=== PATIENT | female | born 1970 | race Caucasian/White ===

== ENCOUNTER 2019-08-06 16:54 | Outpatient (CLI) | payer OTHER, SELFPAY | END 2019-08-06 16:55 | disposition home or self-care (01) | LOC: CHSLAB 16:57 | PROVIDERS: PCP Internal Medicine; Visit Provider Specialist | DX: D22.5 Melanocytic nevi of trunk (principal) | CPT/HCPCS: 88305 ==

== ENCOUNTER 2020-04-06 12:06 | Outpatient (CLI) | payer OTHER, SELFPAY ==
--- NOTE | ~2020-04-06 | MM_ITS ---
EXAMINATION: MM screening [facility] BI w sarah HISTORY: Screening mammogram TECHNIQUE: Craniocaudal and mediolateral oblique 3-D tomosynthesis images were obtained and synthetic 2-D images were generated. CAD analysis was submitted and interpreted. COMPARISON: 04/05/2019, 04/03/2018, 03/23/2017 bilateral digital screening mammogram examinations BREAST PARENCHYMAL COMPOSITION: The breasts are heterogeneously dense, which may obscure small masses . FINDINGS: There is no evidence of suspicious mass, calcification, or architectural distortion to sugg est malignancy in either breast. There has been no suspicious interval change. IMPRESSION: 1. No mammographic evidence of malignancy. 2. Recommend routine screening mammography in one year. BI-RADS Category 1: Negative Reviewed, dictated and finalized at location A. EY KNITTER
== END 2020-04-06 12:07 | disposition home or self-care (01) ==
LOC: CHSIMG 12:07
PROVIDERS: PCP Internal Medicine; Visit Provider Obstetrics & Gynecology
DX: Z12.31 Encounter for screening mammogram for malignant neoplasm of breast (principal)
CPT/HCPCS: 77063; 77067

== ENCOUNTER 2020-12-29 12:28 | Outpatient (CLI) | payer OTHER, SELFPAY ==
--- NOTE | ~2020-12-29 | US_ITS ---
EXAMINATION: US pelvic complete w TV DATE: 12/29/2020 13:00 INDICATION: Irregular periods Comparison:No prior studies for comparison. TECHNIQUE: Multiple transabdominal and endovaginal sonographic images of the pelvis performed. FINDINGS: The uterus measures 6.7 x 3.1 x 4.1 cm. The endometrial complex measures 5 mm. The right ovary measures 2.1 x 1.3 x 2.4 cm and the left ovary measures 2.9 x 2 x 2.2 cm. There are small follicles in each ovary. There is a 2.4 cm left ovarian cyst. Normal doppler signal in both ova francheska. There is no free fluid in the pelvis. There are no abnormal masses seen on either side. IMPRESSION: 1. Left ovarian cyst measuring 2.4 cm. Reviewed, dictated and finalized at location A.
== END 2020-12-29 12:29 | disposition home or self-care (01) ==
LOC: CHSIMG 12:32
PROVIDERS: PCP Internal Medicine; Visit Provider Obstetrics & Gynecology
DX: N92.6 Irregular menstruation, unspecified (principal)
CPT/HCPCS: 76830; 76856

== ENCOUNTER 2021-04-08 07:16 | Outpatient (CLI) | payer OTHER, SELFPAY ==
--- NOTE | ~2021-04-08 | MM_ITS ---
EXAMINATION: MM screening [facility] BI w sarah HISTORY: Screening mammogram TECHNIQUE: Craniocaudal and mediolateral oblique 3-D tomosynthesis images were obtained and synthetic 2-D images were generated. CAD analysis was submitted and interpreted. COMPARISON: 04/06/2020, 04/05/2019, 04/03/2018 BREAST PARENCHYMAL COMPOSITION: The breasts are heterogeneously dense, which may obscure small masses . FINDINGS: There is no evidence of suspicious mass, calcification, or architectural distortion to sugg est malignancy in either breast. There has been no suspicious interval change. IMPRESSION: 1. No mammographic evidence of malignancy. 2. Recommend routine screening mammography in one year. BI-RADS Category 1: Negative Reviewed, dictated and finalized at location A. FILLER
== END 2021-04-08 07:17 | disposition home or self-care (01) ==
LOC: CHSIMG 07:20
PROVIDERS: PCP Internal Medicine; Visit Provider Obstetrics & Gynecology
DX: Z12.31 Encounter for screening mammogram for malignant neoplasm of breast (principal)
CPT/HCPCS: 77063; 77067

== ENCOUNTER 2022-01-26 08:44 | Outpatient (CLI) | payer BC, SELFPAY ==
[2022-01-26 08:56] LABS: Basophils Absolute Auto 0.03 K/mm3 (0.00-0.10); Basophils Percent Auto 0.7 % (0.0-1.0); Eosinophils Absolute Auto 0.09 K/mm3 (0.02-0.50); Hematocrit 41.7 % (35.0-49.0); Hemoglobin 13.9 g/dL (12.0-15.0); Immature Granulocyte Absolute 0.01 K/mm3 (0.00-0.00); Immature Granulocyte Percent A 0.2 % (0.0-0.0); Lymphocytes Absolute Auto 1.68 K/mm3 (1.10-4.50); Lymphocytes Percent Auto 37.7 % (18.0-42.0); Mean Corpuscular HGB Conc 33.3 g/dL (32.0-36.0); Mean Corpuscular Hemoglobin 30.6 pg (27.0-31.0); Mean Corpuscular Volume 91.9 fL (78.0-102.0); Mean Platelet Volume 10.8 fl (9.2-11.8); Monocytes Absolute Auto 0.36 K/mm3 (0.10-0.90); Monocytes Percent Auto 8.1 % (2.0-11.0); Neutrophils Absolute Auto 2.3 K/mm3 (1.7-7.2); Neutrophils Percent Auto 51.3 % (50.0-70.0); Platelet Count Result 163 K/mm3 (150-420); Red Blood Count 4.54 M/mm3 (4.20-5.40); Red Cell Distribution Width 12.5 % (11.6-14.4); White Blood Count 4.5 K/mm3 (4.8-10.8)
[2022-01-26 08:59] LABS: Appearance Urine Clear (Clear); Bilirubin Urine Negative (Negative); Color Urine Yellow (Yellow); Glucose Urine UA Negative (Negative); Ketones Urine Negative (Negative); Leukocyte Esterase Ur Negative LEU/UL (Negative); Nitrate Urine Negative (Negative); Protein Urine Negative (Negative); Specific Grav Ur >= 1.030 (1.010-1.020); Urobilinogen Urine 0.2 mg/dL (0.2-1.0)
[2022-01-26 09:03] LABS: Add Urine Microscopic? YES; Bacteria Urine 2+ /hpf; Blood Urine Trace-Intact (Negative); RBC Urine 0-2 /hpf (0-2); Squamous Epithelial Cell Urine Moderate /hpf (Few); WBC Urine None seen /hpf (0-3)
[2022-01-26 09:04] LABS: Mucus Urine Moderate /lpf
[2022-01-26 09:08] LABS: Creatinine Urine 291.91 mg/dL (40-278); MALB Creatinine Ratio 4.4 mg/g (0-30); Microalbumin Urine Random < 13.0 mg/L
[2022-01-26 09:10] LABS: Hemoglobin A1C 5.4 % (<5.7)
[2022-01-26 09:30] LABS: Alanine Aminotransferase 29 U/L (14-59); Albumin Level 4.1 g/dL (3.4-5.0); Alkaline Phosphatase 78 U/L (46-116); Anion Gap 9 mmol/L (8-16); Aspartate Amino Transferase 17 U/L (15-37); Bilirubin,Total 0.5 mg/dL (0.00-1.00); Blood Urea Nitrogen 10 mg/dL (7-18); Carbon Dioxide 29 mmol/L (21-32); Chloride 107 mmol/L (98-108); Cholesterol 177 mg/dL (0-200); Creatine Kinase 64 U/L (26-192); Estimated Glomerular Filt Rate > 60; Glucose 115 mg/dL (70-99); HDL Direct 49 mg/dL (40-60); LDL Cholesterol Calculated 104 mg/dL (<130); Osmolality Calculated 300 mOsm/kg (285-295); Potassium 3.7 mmol/L (3.5-5.1); Sodium 145 mmol/L (136-145); Total Protein 7.1 g/dL (6.4-8.2); Triglycerides 119 mg/dL (0-150)
[2022-01-28 22:00] LABS: Vitamin D 25 Hydroxy 65 ng/mL (30-100)
== END 2022-01-26 08:45 | disposition home or self-care (01) ==
LOC: CHSLAB 08:46
PROVIDERS: PCP Internal Medicine; Visit Provider Internal Medicine
DX: Z00.00 Encounter for general adult medical examination without abnormal findings (principal); R73.01 Impaired fasting glucose; M81.0 Age-related osteoporosis without current pathological fracture
CPT/HCPCS: 36415; 80053; 80061; 81001; 82043; 82306; 82550; 83036; 85025

== ENCOUNTER 2022-08-03 11:46 | Outpatient (CLI) | payer BC, SELFPAY ==
--- NOTE | ~2022-08-03 | MM_ITS ---
EXAMINATION: MM screening [facility] BI w sarah HISTORY: Screening mammogram TECHNIQUE: Craniocaudal and mediolateral oblique 3-D tomosynthesis images were obtained and synthetic 2-D images were generated. CAD analysis was submitted and interpreted. COMPARISON: 04/08/2021, 04/06/2020, 04/05/2019 BREAST PARENCHYMAL COMPOSITION: The breasts are heterogeneously dense, which may obscure small masses . FINDINGS: RIGHT BREAST: An asymmetry is present in the posterior third of the upper inner right breast on the c raniocaudal view. LEFT BREAST: No suspicious mass, calcification, or architectural distortion are identified to suggest malignancy. There has been no suspicious interval change. IMPRESSION: 1. Right breast asymmetry. 2. Additional mammographic views and possible breast ultrasound are recommended. BI-RADS Category 0: Incomplete: Needs additional imaging evaluation. Reviewed, dictated and finalized at location A. IMPRESSION: 1. Right breast asymmetry. 2. Additional mammographic views and possible breast ultrasound are recommended . BI-RADS Category 0: Incomplete: Needs additional imaging evaluation.
== END 2022-08-03 11:47 | disposition home or self-care (01) ==
LOC: CHSIMG 11:47
PROVIDERS: PCP Internal Medicine; Visit Provider Obstetrics & Gynecology
DX: Z12.31 Encounter for screening mammogram for malignant neoplasm of breast (principal)
CPT/HCPCS: 77063; 77067

== ENCOUNTER 2022-08-05 07:48 | Outpatient (CLI) | payer BC, SELFPAY ==
[2022-08-05 08:21] LABS: Anion Gap 6 mmol/L (8-16); Blood Urea Nitrogen 12 mg/dL (7-17); Calcium 9.5 mg/dL (8.4-10.2); Carbon Dioxide 32 mmol/L (22-30); Chloride 103 mmol/L (98-107); Estimated Glomerular Filt Rate > 60; Glucose 121 mg/dL (65-110); Potassium 3.8 mmol/L (3.4-5.0); Sodium 141 mmol/L (137-145)
[2022-08-05 08:22] LABS: Hematocrit 44.2 % (37.0-47.0); Hemoglobin 14.8 g/dL (12.0-15.0); Mean Corpuscular HGB Conc 33.5 g/dl (32-36); Mean Corpuscular Hemoglobin 30.7 pg (26-34); Mean Corpuscular Volume 91.7 fl (80-100); Mean Platelet Volume 10.9 fl (7.4-10.4); Platelet Count Result 168 k/mm3 (150-375); Red Blood Count 4.82 M/mm3 (4.2-5.4); Red Cell Distribution Width 13.2 % (11.5-14.5); White Blood Count 5.6 K/mm3 (4.5-10.0)
== END 2022-08-05 07:49 | disposition home or self-care (01) ==
LOC: ANHSURGERY 07:52
PROVIDERS: Anesthesiology; PCP Internal Medicine; Visit Provider Obstetrics & Gynecology
DX: N95.0 Postmenopausal bleeding (principal)
CPT/HCPCS: 36415; 80048; 85027

== ENCOUNTER 2022-08-09 08:48 | Outpatient (CLI) | payer BC, SELFPAY | END 2022-08-09 08:49 | disposition home or self-care (01) | LOC: CHSIMG 08:49 | PROVIDERS: PCP Internal Medicine; Visit Provider Obstetrics & Gynecology | DX: N64.89 Other specified disorders of breast (principal); R92.8 Other abnormal and inconclusive findings on diagnostic imaging of breast | CPT/HCPCS: 99199 ==

== ENCOUNTER 2022-08-11 00:48 | Day surgery (SDC) | payer BC, SELFPAY ==
--- NOTE | 2022-08-01 10:17 | SUR.PREOP ---
Report to the Outpatient Waiting Room, entrance under the green pavilion located off [facility], at time 0815 on date 08/11/22. Planned Procedure Time: 1015. Time changes happen often and if your time is changed the preop area will call you the afternoon before. - You and your visitor will be asked to self-screen and do not enter if you have any COVID symptoms. - A mask is optional within the hospital at this time. Patients may have clear liquids (water, carbonated beverages, clear teas, apple juice) until 3 hours prior to surgery with a maximum of 20 ounces. - NO CLEAR LIQUIDS AFTER 0715 - No food from midnight until time of surgery - Infants may have breast milk until 4 hours before surgery, formula 6 hours prior to surgery. - Children will be allowed to drink immediately following surgery. If applicable, please bring a bottle or sippy cup to assist with drinking. Juice, water, soda, and popsicles are readily available. For infants on formula, please bring formula the day of surgery. Pacifiers are allowed. Take the following medications with a SIP of water the morning of surgery: ____N/A____ DO NOT STOP ANY OF YOUR OTHER PRESCRIPTION MEDICATIONS PRIOR TO SURGERY ?EXCEPT THE FOLLOWING Medications to discontinue per physician N/A Date to take last dose N/A Please no make-up, nail bolivian, hairspray, perfume, deodorant, or body powder the day of surgery. No jewelry (including any body piercings) or valuables the day of surgery, leave them at home. Please take a shower or bath the night before, or the morning of, surgery with an antibacterial soap. Wear comfortable, loose fitting clothing. Children are encouraged to wear pajamas. - Jewelry must be removed prior to entering the operating room. Rings and piercings that are not removed may be cut off. - The hospital will not accept responsibility for valuables. - Please leave all valuables, including medications, at home the day of surgery. If you are going home after surgery, a licensed show horse driver must drive you home. - NO public transportation without another adult if you receive anesthesia. - We recommend that an adult stay with you for 24 hours following discharge. - We also recommend that you do not drive, make important decision, drink alcoholic beverages, or take any drugs that were not prescribed by your health care provider for at least 24 hours after your discharge time. For Pediatric surgeries, we recommend two adults accompany the child home. Follow any additional instructions given to you from your surgeon. If you or anyone in your household have experienced Covid symptoms in the past week, please notify your surgeon or the nurse liaison at the phone number below for possible testing. Telephone instructions given to YANELI ESPINO and asked if any additional questions and then verbalized understanding. Patient advised to call surgeon office or pre surgery nurse liaison [phone] if any additional questions.
[2022-08-01 10:26] VITALS: BMI 28.3
--- NOTE | 2022-08-10 13:11 | WPDANESEPPF ---
Anes - Initial Pre Proc Eval Procedure: Operation Date: 08/11/22 09:15 Proposed Procedures p Hysteroscopy Dilation and Curettage with Polypectomy - Leandro Rebolledo MD Date/Time: 08/10/22 13:11 Surgeon: Leandro Rebolledo MD Pre Op Diagnosis: post menopausal bleeding Patient Data Age: 51 Gender: F Height: 1.65 m Weight: 77.2 kg Allergies Allergy/AdvReac Type Severity Reaction Status Date / Time No Known Allergies Allergy Verified 08/11/22 07:58 Home Medications Medication Instructions Recorded Confirmed Type atorvastatin 10 mg tablet 10 mg PO DAILY 05/10/22 08/01/22 History estradiol 0.05 mg-norethindrone 1 patch transdermal 2XW #24 ea 05/10/22 08/01/22 Rx 0.14 mg/24 hr semiwkly transderm patch (CombiPatch) potassium chloride 10 mEq 10 meq PO DAILY 05/10/22 08/01/22 History tablet,extended release losartan 50 mg-hydrochlorothiazide 1 tablet PO DAILY 08/01/22 08/01/22 History 12.5 mg tablet varenicline 1 mg tablet 1 mg PO DAILY 08/01/22 08/01/22 History Patient hx anesthesia problems: none Family hx anesthesia problems: none Results Review: All pre-operative results and documents have been reviewed as part of the pre-operative evaluation. FORMERLY [facility] Past Medical History Medical History Breast asymmetry High cholesterol Hypertension Metatarsalgia of right foot Plantar fasciitis of left foot Screening mammogram, encounter for Wears glasses Family History Family History Grandparent Diabetes mellitus paternal grandmother Breast cancer paternal grandmother Father Hypertension Mother Hypertension Other Arthritis High cholesterol Social History Social History Years smoked: 15 Smoking status: Former smoker Smoking end date: 04/17/18 Alcohol intake: current Drinks per week: 6 Substance use: never Substance use type: does not use Living arrangements: with family Additional living arrangements comments: Occupation/Education: occupation 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 Gender identity (if verbalized by the patient): Female Sexual Orientation (if Verbalized by the Patient): Straight or Heterosexual Spiritual care concerns: No Anes - Eval Final PreProcedure Day of Procedure 08/10/22 13:11 Patient weight: overweight Heart: regular rate and rhythm Lungs: clear to auscultation Airway: Mallampati scale class II Neurological: alert and oriented Last oral intake: >/= 8 hours ASA classification: II Emergent: no Anesthetic plan: proceed Anesthesia type and monitoring: general GIVS and standard monitoring Results Review: All pre-operative results and documents have been reviewed as part of the pre-operative evaluation. Informed Consent: The patient's anesthetic plan and its attendant risks and benefits were discussed with the patient/family/POA. Questions were solicited and answers provided to the satisfaction of the patient/family/POA.
--- NOTE | 2022-08-10 15:03 | PM.IMHP ---
H&P: HPI History of Present Illness Date/Time: 08/10/22 15:03 51-year-old female presents with complaints of irregular vaginal bleeding. The bleeding is very light and she is on the CombiPatch and this is likely the origination of this, though she has had an ultrasound which is suggestive of endometrial polyp. She therefore presents today for hysteroscopic exam tissue sampling to be sure of benign process as well as removal of polyp if present. Chief Complaint: Postmenopausal bleeding Review of Systems Review of Systems: All systems reviewed & are unremarkable except as noted in HPI and below PMFSH Past Medical History Medical History Breast asymmetry High cholesterol Hypertension Metatarsalgia of right foot Plantar fasciitis of left foot Screening mammogram, encounter for Wears glasses Family History Family History Grandparent Diabetes mellitus paternal grandmother Breast cancer paternal grandmother Father Hypertension Mother Hypertension Other Arthritis High cholesterol Social History Social History Years smoked: 15 Smoking status: Former smoker Smoking end date: 04/17/18 Alcohol intake: current Drinks per week: 6 Substance use: never Substance use type: does not use Living arrangements: with family Additional living arrangements comments: Occupation/Education: occupation 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 [employer] Gender identity (if verbalized by the patient): Female Sexual Orientation (if Verbalized by the Patient): Straight or Heterosexual Spiritual care concerns: No Meds Home Medications and Allergies Home Medications Medication Instructions Recorded Confirmed Type atorvastatin 10 mg tablet 10 mg PO DAILY 05/10/22 08/01/22 History estradiol 0.05 mg-norethindrone 1 patch transdermal 2XW #24 ea 05/10/22 08/01/22 Rx 0.14 mg/24 hr semiwkly transderm patch (CombiPatch) potassium chloride 10 mEq 10 meq PO DAILY 05/10/22 08/01/22 History tablet,extended release losartan 50 mg-hydrochlorothiazide 1 tablet PO DAILY 08/01/22 08/01/22 History 12.5 mg tablet varenicline 1 mg tablet 1 mg PO DAILY 08/01/22 08/01/22 History Allergies Allergy/AdvReac Type Severity Reaction Status Date / Time No Known Allergies Allergy Verified 08/01/22 10:05 Exam Const: General: cooperative, healthy appearing and comfortable Resp: Auscultation: clear to auscultation bilaterally Cardio: Rate: regular rate Rhythm: regular rhythm GI: Inspection: normal to inspection Auscultation: normal bowel sounds : External Female Exam: normal external appearance Speculum Exam - Vagina: normal appearance of the vagina Speculum Exam - Cervix: normal appearance of the cervix Bimanual exam- vagina & uterus: normal bimanual exam Bimanual Exam- Adnexa, other: normal adnexae Assessment and Plan Assessment and plan (1) Postmenopausal bleeding: Code(s): N95.0 - Postmenopausal bleeding Status: Acute (2) Abnormal uterine bleeding due to endometrial polyp: Code(s): N93.9 - Abnormal uterine and vaginal bleeding, unspecified; N84.0 - Polyp of corpus uteri Status: Acute Plan 1. Hysteroscopy with uterine curettings 2. Endometrial polypectomy if polyp is present
[2022-08-11] MEDS: LACTATED RINGERS 1,000 ML 30 ML IV CONT ×2 (07:50→09:00)
[2022-08-11] MEDS: ACETAMINOPHEN 500 MG TABLET 1000 MG PO (07:50)
[2022-08-11 07:54] VITALS: BP 124/64; PULSE 76; RESP 14; TEMP 36.1; O2SAT 99
--- NOTE | 2022-08-11 08:25 | WPDHPUPDATE1 ---
History and Physical Update Update Date/Time: 08/11/22 08:25 History and Physical has been reviewed, including an updated exam of the patient. There are NO changes in the patient's condition. Risks, benefits, and alternatives have been discussed and questions answered. Patient agrees to proceed with procedure.
[2022-08-11] MEDS: KETOROLAC 30 MG/ML VIAL (*BKC) IV PUSH (09:30)
--- NOTE | 2022-08-11 09:42 | W.PM.PROC2 ---
Procedure Note - Detailed Date of Procedure 08/11/22 Pre-op Diagnosis post menopausal bleeding Post-op Diagnosis Same Procedure Performed Hysteroscopy with uterine curettings Surgeon Leandro Rebolledo MD Anesthesia MAC Findings Endometrial cavity not atrophic but no evidence of hyperplasia or polyps. Description of Procedure Patient was prepped draped usual manner for this procedure. Placement of the hysteroscope revealed endometrial cavity to be as noted above. Generalized 4 quadrant curetting was then obtained with moderate amount of tissue. There was no significant bleeding at this point the procedure was complete and the patient was sent to recovery room in stable condition. Estimated Blood Loss 10 Pathology Yes Complications No immediate complications Condition Stable Disposition PACU [facility] Billing Surgery - Charge Forward: Surgery Billing
[2022-08-11 09:46] VITALS: BP 124/64; PULSE 77; RESP 12; O2SAT 98
[2022-08-11 10:20] VITALS: BP 139/73; PULSE 54; RESP 18
== END 2022-08-11 10:35 | disposition home or self-care (01) ==
PROVIDERS: PCP Internal Medicine; Visit Provider Obstetrics & Gynecology
PROC: 0U5B8ZZ Destruction of Endometrium, Via Natural or Artificial Opening Endoscopic (ICD-10-PCS; CPT 58563; principal; 2022-08-11 09:15)
DX: N95.0 Postmenopausal bleeding (principal); E78.00 Pure hypercholesterolemia, unspecified; I10 Essential (primary) hypertension; Z87.891 Personal history of nicotine dependence
CPT/HCPCS: 58558; 88305; A9270; J1100; J1885; J2250; J2405; J2704; J3010; J7120

== ENCOUNTER 2023-02-16 08:17 | Outpatient (CLI) | payer BC, SELFPAY ==
[2023-02-16 08:37] LABS: Basophils Absolute Auto 0.03 K/mm3 (0.00-0.10); Basophils Percent Auto 0.6 % (0.0-1.0); Hematocrit 43.8 % (35.0-49.0); Hemoglobin 14.4 g/dL (12.0-15.0); Immature Granulocyte Absolute 0.02 K/mm3 (0.00-0.00); Immature Granulocyte Percent A 0.4 % (0.0-0.0); Lymphocytes Absolute Auto 1.68 K/mm3 (1.10-4.50); Lymphocytes Percent Auto 34.1 % (18.0-42.0); Mean Corpuscular HGB Conc 32.9 g/dL (32.0-36.0); Mean Corpuscular Hemoglobin 30.3 pg (27.0-31.0); Mean Platelet Volume 10.3 fl (9.2-11.8); Monocytes Absolute Auto 0.37 K/mm3 (0.10-0.90); Monocytes Percent Auto 7.5 % (2.0-11.0); Neutrophils Absolute Auto 2.7 K/mm3 (1.7-7.2); Neutrophils Percent Auto 55.4 % (50.0-70.0); Platelet Count Result 169 K/mm3 (150-420); Red Blood Count 4.76 M/mm3 (4.20-5.40); Red Cell Distribution Width 12.7 % (11.6-14.4); White Blood Count 4.9 K/mm3 (4.8-10.8)
[2023-02-16 08:38] LABS: Appearance Urine Clear (Clear); Bilirubin Urine Negative (Negative); Blood Urine Trace-Intact (Negative); Color Urine Yellow (Yellow); Glucose Urine UA Negative (Negative); Ketones Urine Negative (Negative); Leukocyte Esterase Ur Negative (Negative); Nitrate Urine Negative (Negative); Protein Urine Negative (Negative); Specific Grav Ur 1.025 (1.010-1.020); Urobilinogen Urine 0.2 mg/dL (0.2-1.0)
[2023-02-16 08:44] LABS: Add Urine Microscopic? YES; Bacteria Urine 2+ /hpf; RBC Urine 0-2 /hpf (0-2); Squamous Epithelial Cell Urine Moderate /hpf (Few); WBC Urine 0-3 /hpf (0-3)
[2023-02-16 08:54] LABS: Hemoglobin A1C 4.9 % (<5.7)
[2023-02-16 09:19] LABS: Alanine Aminotransferase 29 U/L (14-59); Albumin Level 3.8 g/dL (3.4-5.0); Alkaline Phosphatase 76 U/L (46-116); Anion Gap 8 mmol/L (8-16); Aspartate Amino Transferase 18 U/L (15-37); Bilirubin,Total 0.5 mg/dL (0.00-1.00); Blood Urea Nitrogen 9 mg/dL (7-18); Calcium 9.5 mg/dL (8.5-10.1); Carbon Dioxide 30 mmol/L (21-32); Chloride 104 mmol/L (98-108); Cholesterol 199 mg/dL (0-200); Creatine Kinase 78 U/L (26-192); Estimated Glomerular Filt Rate > 60; Free T3 3.11 pg/mL (2.18-3.98); Free T4 Free Thyroxine 0.84 ng/dL (0.76-1.46); Glucose 98 mg/dL (70-99); HDL Direct 55 mg/dL (40-60); LDL Cholesterol Calculated 116 mg/dL (<130); Osmolality Calculated 292 mOsm/kg (285-295); Potassium 3.7 mmol/L (3.5-5.1); Sodium 142 mmol/L (136-145); Thyroid Stimulating Hormone 1.65 uIU/mL (0.36-3.74); Triglycerides 138 mg/dL (0-150)
[2023-02-19 16:32] LABS: Vitamin D 25 Hydroxy 38 ng/mL (30-100)
== END 2023-02-16 08:18 | disposition home or self-care (01) ==
LOC: CHSLAB 08:19
PROVIDERS: PCP Internal Medicine; Visit Provider Internal Medicine
DX: Z00.00 Encounter for general adult medical examination without abnormal findings (principal); I10 Essential (primary) hypertension; E78.2 Mixed hyperlipidemia; R73.01 Impaired fasting glucose
CPT/HCPCS: 36415; 80053; 80061; 81001; 82306; 82550; 83036; 84439; 84443; 84481; 85025

== ENCOUNTER 2023-02-23 12:16 | Outpatient (CLI) | payer BC, SELFPAY ==
--- NOTE | ~2023-02-23 | DEXA_ITS ---
Bone Density Report Name: YANELI ESPINO Age: 52 Sex: Female Ethnicity: White Date of : 1970 Indication: postmenopausal; screening for osteoporosis; Referring Provider: Jing Nath Study: Bone densitometry was performed. Exam Date: February 23, 2023 Accession number: [id number] Bone Density: Region BMD T-score Z-score Classification AP Spine(L1-L4) 1.160 1.0 2.1 Normal Femoral Neck (Left) 0.828 -0.2 0.8 Normal Total Hip (Left) 0.994 0.4 1.1 Normal Femoral Neck (Right) 0.877 0.2 1.3 Normal Total Hip (Right) 1.017 0.6 1.3 Normal Femoral Neck Mean 0.852 0.0 1.0 Normal Total Hip Mean 1.005 0.5 1.2 Normal World Health Organization criteria for BMD impression classify patients as: Normal (T-score at or above -1.0), Osteopenia (T-score between -1.0 and -2.5), or Osteoporosis (T-score at or below -2.5). 10-year Fracture Risk: FRAX not reported because: All T-scores for Spine Total, Hip Total, Femoral Neck at or above -1.0 Clinical Information Provided by Patient: Has 3 or more alcoholic drinks per day Has used the following medications: Vitamin D Patient maximum height was 65 Menopause Age: 50 Does not regularly consume dairy products Drinks caffeinated beverages Onset of menses at age 13 Number of children 0 Impression: The patient has normal bone mass. The patient has risk factors, including: excessive alcohol use. Discussion: BONE DENSITY IS ABOVE THE MINIMUM DESIRABLE LEVEL AT ALL SKELETAL SITES TESTED. This patient?s bone mineral density is above the minimum desirable level (T-score -1.0 or better) at all sites measured. The patient should follow a healthful lifestyle (good nutrition with adequate calcium and vitamin D, and appropriate weight-bearing exercise). Follow-Up: Consider repeating this study in 5 years or sooner if there is some new clinical indication. Reported by: Dr. Asael Arboleda on 02/23/2023 12:37:00 PM. Reviewed, dictated and finalized at location A.
== END 2023-02-23 12:17 | disposition home or self-care (01) ==
LOC: CHSIMG 12:17
PROVIDERS: PCP Internal Medicine; Visit Provider Internal Medicine
DX: M81.0 Age-related osteoporosis without current pathological fracture (principal)
CPT/HCPCS: 77080

== ENCOUNTER 2023-08-10 12:29 | Outpatient (CLI) | payer BC, SELFPAY ==
--- NOTE | ~2023-08-10 | MM_ITS ---
EXAMINATION: MM screening [facility] BI w sarah HISTORY: Screening mammogram TECHNIQUE: Craniocaudal and mediolateral oblique 3-D tomosynthesis images were obtained and synthetic 2-D images were generated. CAD analysis was submitted and interpreted. COMPARISON: August 03, 2022, April 08, 2021 lateral screening mammogram examinations BREAST PARENCHYMAL COMPOSITION: The breasts are heterogeneously dense, which may obscure small masses . FINDINGS: There are 2 contiguous approximately 2.83 x 5 mm mildly irregular relatively high density m asses in the posterior aspect of the mid to upper inner left breast. These are very suspicious. Diagn ostic left mammogram and left breast ultrasound examination recommended. No suspicious mass, architectural distortion, malignant calcification, skin thickening or retraction or significant new or developing density the breast is noted otherwise. IMPRESSION: 1. 2 suspicious masses in the posterior mid to upper inner left breast 2. Diagnostic left mammogram and left breast ultrasound examination recommended. BI-RADS Category 0: Incomplete: Needs additional imaging evaluation. Reviewed, dictated and finalized at location A. IMPRESSION: 1. 2 suspicious masses in the posterior mid to upper inner left breast 2. Diagnostic left mammogram and left breast ultrasound examination recommended . BI-RADS Category 0: Incomplete: Needs additional imaging evaluation.
== END 2023-08-10 12:30 | disposition home or self-care (01) ==
LOC: CHSIMG 12:31
PROVIDERS: PCP Internal Medicine; Visit Provider Obstetrics & Gynecology
DX: Z12.31 Encounter for screening mammogram for malignant neoplasm of breast (principal); R92.8 Other abnormal and inconclusive findings on diagnostic imaging of breast
CPT/HCPCS: 77063; 77067

== ENCOUNTER 2023-08-22 08:49 | Outpatient (CLI) | payer BC, SELFPAY ==
--- NOTE | ~2023-08-22 | MMUS_ITS ---
EXAMINATION: MM diagnostic mammo unilat LT, US breast LT limited HISTORY: 2 contiguous approximately 2.8 and 5 mm mildly irregular relatively high density suspicious mammographic masses reported in the posterior upper inner quadrant of the left breast on August 09 screening mammogram TECHNIQUE: Additional 3-D tomosynthesis images of the left breast were performed and synthetic 2-D im ages were generated. CAD analysis was submitted and interpreted. High resolution upper inner quadrant left breast ultrasound was performed. COMPARISON: August 10, 2023, August 03, 2022, April 08, 2021 bilateral screening mammogram examinati ons FINDINGS: MAMMOGRAPHIC FINDINGS: 2 small contiguous masses measuring up to approximately 4 mm maximal dimension are again noted in the posterior upper inner left breast. These were not present on April 08, 2021. ULTRASOUND: Real time imaging in the upper inner quadrant of the left breast with particular attention to the are a of interest in the posterior aspect of the upper outer quadrant reveals no definite sonographic cor relate for the small masses noted mammographically. IMPRESSION: 1. Suspicious 4 mm and smaller masses in the posterior upper inner quadrant of the left breast 2. Stereotactic biopsy of these masses is recommended BI-RADS category 4, suspicious findings. Dr. Rogers telephoned the report and stereotactic biopsy recommendation of posterior upper inner quadra nt left breast masses on August 22, 2023 at 0950 hours to Physician Contribution Solicitor Bessie. Reviewed, dictated and finalized at location B. IMPRESSION: 1. Suspicious 4 mm and smaller masses in the posterior upper inner quadrant of the left breast 2. Stereotactic biopsy of these masses is recommended BI-RADS category 4, suspicious findings. Dr. Rogers telephoned the report and stereotactic biopsy recommendation of city weighmaster ior upper inner quadrant left breast masses on August 22, 2023 at 0950 hours to Erik La.
== END 2023-08-22 08:50 | disposition home or self-care (01) ==
LOC: CHSIMG 08:50
PROVIDERS: PCP Internal Medicine; Visit Provider Obstetrics & Gynecology
DX: N63.22 Unspecified lump in the left breast, upper inner quadrant (principal); R92.8 Other abnormal and inconclusive findings on diagnostic imaging of breast
CPT/HCPCS: 76642; 77065

== ENCOUNTER 2024-02-21 08:38 | Outpatient (CLI) | payer BC, SELFPAY ==
[2024-02-21 08:55] LABS: Add Urine Microscopic? YES; Appearance Urine Clear (Clear); Bilirubin Urine Negative (Negative); Blood Urine 1+ (Negative); Color Urine Yellow (Yellow); Glucose Urine UA Negative (Negative); Ketones Urine Negative (Negative); Leukocyte Esterase Ur Trace LEU/UL (Negative); Nitrate Urine Negative (Negative); Protein Urine Negative (Negative); Specific Grav Ur >= 1.030 (1.010-1.020); Urobilinogen Urine 0.2 mg/dL (0.2-1.0); pH Urine 5.5 (5.0-8.0)
[2024-02-21 08:58] LABS: Hematocrit 42.1 % (35.0-49.0); Hemoglobin 14.5 g/dL (12.0-15.0); Mean Corpuscular HGB Conc 34.4 g/dL (32-36); Mean Corpuscular Hemoglobin 30.6 pg (27.0-31.0); Mean Corpuscular Volume 88.8 fL (78.0-102.0); Mean Platelet Volume 10.3 fl (9.2-11.8); Platelet Count Result 165 K/mm3 (150-420); Red Blood Count 4.74 M/mm3 (4.20-5.40); Red Cell Distribution Width 12.7 % (11.6-14.4); White Blood Count 3.9 K/mm3 (4.8-10.8)
[2024-02-21 09:12] LABS: Bacteria Urine 1+ /hpf; Squamous Epithelial Cell Urine Few /hpf (Few); WBC Urine 0-5 /hpf (0-3)
[2024-02-21 09:19] LABS: Hemoglobin A1C 5.2 % (<5.7)
[2024-02-21 09:26] LABS: Band Neutrophils Percent 0 % (0-6); Eosinophils Absolute Manual 0.03 K/mm3 (0.02-0.50); Eosinophils Percent Manual 1 % (1-6); Lymphocytes Absolute Manual 1.36 K/mm3 (1.1-4.5); Lymphocytes Percent Manual 35 % (18-44); Monocytes Absolute Manual 0.31 K/mm3 (0.1-0.90); Monocytes Percent Manual 8 % (3-9); Neutrophils Absolute Manual 2.18 K/mm3 (1.7-7.2); Neutrophils Percent Manual 56 % (46-73); Platelet Estimate Adequate (Adequate); Total Cells Counted 100
[2024-02-21 09:42] LABS: Alanine Aminotransferase 44 U/L (14-59); Albumin Level 3.9 g/dL (3.4-5.0); Alkaline Phosphatase 86 U/L (46-116); Anion Gap 7 mmol/L (4-12); Aspartate Amino Transferase 23 U/L (15-37); Bilirubin,Total 0.7 mg/dL (0.00-1.00); Blood Urea Nitrogen 13 mg/dL (7-18); Calcium 9.5 mg/dL (8.5-10.1); Carbon Dioxide 30 mmol/L (21-32); Chloride 105 mmol/L (98-108); Cholesterol 224 mg/dL (0-200); Creatine Kinase 65 U/L (26-192); Estimated Glomerular Filt Rate > 60; Glucose 113 mg/dL (70-99); HDL Direct 60 mg/dL (40-60); LDL Cholesterol Calculated 127 mg/dL (<130); Osmolality Calculated 295 mOsm/kg (285-295); Potassium 4.1 mmol/L (3.5-5.1); Sodium 142 mmol/L (136-145); Total Protein 7.3 g/dL (6.4-8.2); Triglycerides 187 mg/dL (0-150)
== END 2024-02-21 08:39 | disposition home or self-care (01) ==
PROVIDERS: PCP Internal Medicine; Visit Provider Internal Medicine
DX: Z00.00 Encounter for general adult medical examination without abnormal findings (principal); R73.01 Impaired fasting glucose; N39.0 Urinary tract infection, site not specified
CPT/HCPCS: 36415; 80053; 80061; 81001; 82550; 83036; 85025

== ENCOUNTER 2024-03-11 11:01 | Outpatient (CLI) | payer BC, SELFPAY ==
[2024-03-11 11:20] LABS: Add Urine Microscopic? NO; Appearance Urine Clear (Clear); Bilirubin Urine Negative (Negative); Blood Urine Negative (Negative); Color Urine Yellow (Yellow); Glucose Urine UA Negative (Negative); Ketones Urine Negative (Negative); Leukocyte Esterase Ur Negative (Negative); Nitrate Urine Negative (Negative); Protein Urine Negative (Negative); Urobilinogen Urine 0.2 mg/dL (0.2-1.0); pH Urine 6.5 (5.0-8.0)
== END 2024-03-11 11:02 | disposition home or self-care (01) ==
LOC: CHSLAB 11:02
PROVIDERS: PCP Internal Medicine; Visit Provider Internal Medicine
DX: R31.9 Hematuria, unspecified (principal)
CPT/HCPCS: 81003; 88112

== ENCOUNTER 2024-08-23 08:17 | Outpatient (CLI) | payer BC, SELFPAY ==
--- OUTSIDE RECORDS SUMMARY | 2024-08-23 08:20 | XMS_ITS | Referral Summary ---
Author Organization [facility] Address Formerly [facility] [place] [address] Care Team Providers Care Mail Processing Equipment Mechanic Name Role Phone Jing Nath MD Primary Care Provider Leandro Rebolledo MD Unavailable [phone] Catherine Lugo MD Unavailable Maggi Galeana MD Unavailable [phone] Arturo Eller MD Unavailable Encounters Date Type Department Care Team Description 06/25/2024 Telephone [facility] Radiation Oncology [address] [place] [address] Lizet Joya NP 06/25/2024 10:45 AM CDT Office Visit [facility] Surgery [address] [place] [id number] Maggi Galeana MD Malignant neoplasm of upper-inner quadrant of left breast in female, estrogen receptor positive (HCC) (Primary Dx) 06/25/2024 10:42 AM CDT - 06/25/2024 11:59 PM CDT Hospital Encounter [facility] [place] - Breast Imaging [address] [place] [phone] Malignant neoplasm of upper-inner quadrant of left breast in female, estrogen receptor positive (HCC) Discharge Disposition: Discharge to home or self care from Last 3 Months Allergies No known active allergies Medications losartan-hydroCH LOROthiazide (HYZAAR) 50-12.5 mg per tabletIndication s:hypertension Take 1 tablet by mouth every morning 4 Active varenicline tartrate (CHANTIX) 1 mg tabletIndication s:Smoking Cessation Take 1 tablet (1 mg total) by mouth every morning 4 Active potassium chloride ER 10 mEq CR tabletIndication s:hypokalemia prevention Take 1 tablet/capsule (10 mEq total) by mouth every morning 4 Active atorvastatin (LIPITOR) 10 mg tabletIndication s:hyperlipidemia Take 1 tablet (10 mg total) by mouth every morning 4 Active ascorbic acid (vitamin C) 1,000 mg tablet Take 1 tablet (1,000 mg total) by mouth daily Active ascorbic acid/collagen hydr (COLLAGEN SKIN RENEWAL ORAL)Indications :supplement Take 1 Dose by mouth every morning Active whey protein isolate, bulk, 100 % powder 1 Dose 3 (three) times a week Active omeprazole (PriLOSEC) 20 mg capsule Take 1 capsule (20 mg total) by mouth as needed (heartburn) Active HYDROcodone-acet aminophen (NORCO) 5-325 mg per tabletIndication s:Pain Take 1 tablet by mouth every 6 (six) hours as needed for pain 10 tablet 4 Active Additional Information Patient not taking.Reported on 03/20/2024 vitamin D3-vitamin K2 25 mcg (1,000 unit)-90 mcg tablet,disintegr ating Take 50 mcg by mouth daily Active cinnamon bark 500 mg capsule Take 2 capsules (1,000 mg total) by mouth daily Active glucosamine/dalai dr shyann curry (glucosamine-cho ndroitin) 1,500-1,200 mg/30 mL liquid Take 60 mL by mouth daily Active ZINC PICOLINATE, BULK, MISC 100 mg daily Active cyanocobalamin (Vitamin B-12) 1,000 mcg tabletIndication s:Prevention of Vitamin B12 Deficiency Take 1 tablet (1,000 mcg total) by mouth daily Active krill oil 500 mg capsule Take 500 mg by mouth daily Active re-xyl-vzuct-duke cium carb-K1 400 mcg-500 mg calcium-20 mcg tablet Take 1 tablet by mouth daily Active turmeric root extract 500 mg capsule Take 1 tablet by mouth daily W/cezar powder Active acidophilus-pect in, citrus 100 million cell-10 mg capsule Take 1 tablet by mouth daily Active coenzyme Q10 200 mg capsule Take 1 capsule (200 mg total) by mouth daily Active vitamin E 200 unit capsule Take 2 capsules (400 Units total) by mouth daily Active NON FORMULARY, FOR CLINIC ADMINISTERED MEDICATIONS ONLY, (not in database) 1 each once Plexus metaburn Active NON FORMULARY, FOR CLINIC ADMINISTERED MEDICATIONS ONLY, (not in database) 1 each once Plexus Greens fermented fruits and vegetables plus kombucha 1 scoop per day Active anastrozole (ARIMIDEX) 1 mg tabletIndication s:Malignant neoplasm of upper-inner quadrant of left breast in female, estrogen receptor positive (HCC) Take 1 tablet (1 mg total) by mouth daily 90 tablet 3 4 Active Active Problems Problem Noted Date Diagnosed Date Malignant neoplasm of upper- inner quadrant of left breast in female, estrogen receptor positive 11/16/2023 Cancer Staging:Pathologic stage from 11/22/2023:Stage IA(pT1b, pN0(sn), cM0, G2, ER+, MD+, HER2-, Oncotype DX score: 6) - Signed by Catherine Lugo MD on 12/28/2023 Immunizations Immunization Administration Dates Next Due Influenza, Quadrivalent, Spl it, Preservative Free, Intramuscular 01/12/2021,01/10/2020 Influenza, Unspecified 01/16/2024 ZOSTER Recombinant 04/29/2020,01/10/2020 Social History Tobacco Use Types Packs/Day Years Used Date Smoking Tobacco: Former Cigarettes Tobacco Cessation:Counseling Given: Not Answered AUDIT-C Answer Date Recorded Q1: How often do you have a drink containing alc ohol? 2-3 times a week 12/28/2023 Q2: How many drinks containi ng alcohol do you have on a typical day when you are drinking? 1 or 2 12/28/2023 Q3: How often do you have si x or more drinks on one occasion? Never 12/28/2023 Personal Safety Answer Date Recorded Have you ever been in or are you currently in a harmful physical or emotional relationship or is someone making you feel afraid or unsafe? Denies 11/22/2023 Comments No Sex and Gender Information Value Date Recorded Sex Assigned at Not on file Legal Sex Female 9:15 AM CHECKMAN Gender Identity Not on file Sexual Orientation Not on file Last Filed Vital Signs Vital Sign Reading Time Taken Comments Blood Pressure 125/74 03/20/2024 9:24 AM CHECKMAN Pulse 66 03/20/2024 9:24 AM CHECKMAN Temperature 36.7 C (98.1 F) 03/20/2024 9:24 AM CHECKMAN Respiratory Rate 16 03/20/2024 9:24 AM CHECKMAN Oxygen Saturation 100% 03/20/2024 9:24 AM CHECKMAN Inhaled Oxygen Concentration - - Weight 90 kg (198 lb 6.4 oz) 06/25/2024 10:30 AM CDT Height 165.1 cm (5' 5 ) 12/28/2023 9:07 AM CDT Body Mass Index 33.02 12/28/2023 9:07 AM CDT Plan of Treatment Not on file Medical Devices Implanted Type Area Account Contact Associate Device Identifier Shelf Expiration Date Model / Serial / Lot Bard Peripheral Vascular Ultraclip Bard 17ga 10cm 2 Trigger Permanent Ultrasound [id number] - [id number] Implanted:Qty: 1 on 10/26/2023 by Teresa Murillo MD at [facility] Left: Breast Bard Peripheral Vascular [id number] / / [employer] Marker Tissue Needle Delivery Spiral Capped Seed Radiopaque Nursing Home Stainless Steel Low Nickel Sentimag [id number] - [id number] Implanted:Qty: 1 on 11/20/2023 by Willy Lawrence MD at [facility] [employer] [id number] / / Procedures Procedure Name Priority Date/Time Associated Diagnosis Comments DIAGNOSTIC MAMMOGRAM BILATERAL W ABRAM Schedule Routine, Read Routine (OP Routine) 06/25/2024 11:46 AM CDT Malignant neoplasm of upper-inner quadrant of left breast in female, estrogen receptor positive (HCC) from Last 3 Months Results * Diagnostic Mammogram Bilateral W Abram (06/25/2024 11:46 AM CDT) Anatomical Region Laterality Modality Breast Bilateral Mammography 06/25/2024 3:14 PM CDT Impressions 06/25/2024 3:14 PM CDT Post breast conservation therapy changes within the LEFT breast without mammographic evidence of malignancy in EITHER breast. OVERALL FINAL ASSESSMENT: BI-RADS Category 2: Benign. RECOMMENDATION: Annual diagnostic mammography is recommended. Dr. Lawrence discussed the above findings and recommendations with the patient, who expressed her understanding of the management plan. Electronically signed by: Willy Lawrence MD Narrative 06/25/2024 3:14 PM CDT EXAMINATION: BILATERAL DIGITAL DIAGNOSTIC MAMMOGRAM INCLUDING CAD AND BILATERAL DIGITAL BREAST TOMOSYNTHESIS HISTORY: 53-year-old woman with history of LEFT breast conservation therapy for invasive ductal carcinoma in 2023. COMPARISON: Multiple priors dating back to 2019, most recent MRI 11/10/2023 TECHNIQUE: Full field digital mammographic views of BOTH breasts were performed, including computer aided detection (CAD) and BILATERAL digital breast tomosynthesis (DBT). BREAST PARENCHYMAL COMPOSITION: The breasts are heterogeneously dense, which may obscure small masses. MAMMOGRAM FINDINGS: Post breast conservation therapy changes within the LEFT breast. No new suspicious mass, distortion, or calcification within EITHER breast. Procedure Note Willy Lawrence MD - 06/25/2024 EXAMINATION: BILATERAL DIGITAL DIAGNOSTIC MAMMOGRAM INCLUDING CAD AND BILATERAL DIGITAL BREAST TOMOSYNTHESIS HISTORY: 53-year-old woman with history of LEFT breast conservation therapy for invasive ductal carcinoma in 2023. COMPARISON: Multiple priors dating back to 2020, most recent MRI 11/10/2023 TECHNIQUE: Full field digital mammographic views of BOTH breasts were performed, including computer aided detection (CAD) and BILATERAL digital breast tomosynthesis (DBT). BREAST PARENCHYMAL COMPOSITION: The breasts are heterogeneously dense, which may obscure small masses. MAMMOGRAM FINDINGS: Post breast conservation therapy changes within the LEFT breast. No new suspicious mass, distortion, or calcification within EITHER breast. IMPRESSION: Post breast conservation therapy changes within the LEFT breast without mammographic evidence of malignancy in EITHER breast. OVERALL FINAL ASSESSMENT: BI-RADS Category 2: Benign. RECOMMENDATION: Annual diagnostic mammography is recommended. Dr. Lawrence discussed the above findings and recommendations with the patient, who expressed her understanding of the management plan. Electronically signed by: Willy Lawrence MD Maggi Galeana MD IMG MAMMO PROCEDURES Fi nal Result from Last 3 Months Insurance ANTHEM ACCESS CHOICE ANTHEM ACCESS CHOICE Care Teams Mail Processing Equipment Mechanic Relationship Specialty Start Date End Date Jing Nath MD [address] [place] [address] PCP - General Internal Medicine 08/22/23 Leandro Rebolledo MD [address] [place] [address] Referring Physician Obstetrics and Gynecology 08/22/23 [place] [address] [place] [address] [address] [place] [address] Radiation Oncologist Radiation Oncology 12/28/23 Maggi Galeana MD [address] [place] [address] Surgeon Surgical Oncology 12/28/23 Arturo Eller MD [address] [place] [address] Consulting Physician Medical Oncology 12/29/23
--- OUTSIDE RECORDS SUMMARY | 2024-08-23 08:20 | XMS_ITS | Encounter Summary ---
Author Organization [facility] Address [address] [place] [address] Phone Care Team Providers Care Reimbursement Coordinator Name Role Phone Jing Nath MD Primary Care Provider [phone] Leandro Rebolledo MD Unavailable [phone] Kristyn Blue MD Unavailable [phone] Catherine Lugo MD Unavailable Maggi Galeana MD Unavailable [phone] Arturo Eller MD Unavailable Encounter Details Date Type Department Care Team (Latest Contact Info) Description 11/22/2023 Orders Only [facility] Scanning, Provider Social History Tobacco Use Types Packs/Day Years Used Date Smoking Tobacco: Former Cigarettes AUDIT-C Answer Date Recorded Q1: How often do you have a drink containing alc ohol? 2-3 times a week 11/17/2023 Q2: How many drinks containi ng alcohol do you have on a typical day when you are drinking? 1 or 2 11/17/2023 Q3: How often do you have si x or more drinks on one occasion? Never 11/17/2023 Personal Safety Answer Date Recorded Have you ever been in or are you currently in a harmful physical or emotional relationship or is someone making you feel afraid or unsafe? 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 Gender Identity Not on file Sexual Orientation Not on file documented as of this encounter Plan of Treatment Not on file documented as of this encounter Procedures Procedure Name Priority Date/Time Associated Diagnosis Comments SCAN - PATHOLOGY 11/22/2023 documented in this encounter Results * SCAN - PATHOLOGY (11/22/2023) us Provider Scanning Edited Result - Final documented in this encounter Visit Diagnoses Not on filedocumented in this encounter Care Teams Reimbursement Coordinator Relationship Specialty Start Date End Date Jing Nath MD [address] [place] [address] PCP - General Internal Medicine 08/22/23 Leandro Rebolledo MD [address] [place] [address] Referring Physician Obstetrics and Gynecology 08/22/23 Kristyn Blue MD [address] DIV IM MEDICAL ONCOLOGY, [address] [place] [address] Medical Oncologist/Hematologis t Medical Oncology 12/04/23 12/28/23 Catherine Lugo MD [address] [place] [address] Radiation Oncologist Radiation Oncology 12/28/23 Maggi Galeana MD [address] [place] [address] Surgeon Surgical Oncology 12/28/23 Arturo Eller MD [address] [place] [address] Consulting Physician Medical Oncology 12/29/23 documented as of this encounter
--- OUTSIDE RECORDS SUMMARY | 2024-08-23 08:20 | XMS_ITS | Clinical Summary ---
Author Organization [facility] Address [address] [place] [address] Care Team Providers Care Pure Culture Operator Name Role Phone Jing Nath MD Primary Care Provider Leandro Rebolledo MD Unavailable [phone] Catherine Lugo MD Unavailable Maggi Galeana MD Unavailable [phone] Arturo Eller MD Unavailable Allergies No known active allergies Medications losartan-hydroCH [...] (1,000 mg total) by mouth daily Active glucosamine/dalia dr shyann curry (glucosamine-cho ndroitin) 1,500-1,200 mg/30 mL liquid Take 60 mL by mouth daily Active ZINC PICOLINATE, BULK, MISC 100 mg daily Active cyanocobalamin (Vitamin B-12) 1,000 mcg tabletIndication s:Prevention of Vitamin B12 Deficiency Take 1 tablet (1,000 mcg total) by mouth daily Active krill oil 500 mg capsule Take 500 mg by mouth daily Active fr-zsz-gmifw-duke cium carb-K1 400 mcg-500 mg calcium-20 mcg [...] from 11/22/2023:Stage IA(pT1b, pN0(sn), cM0, G2, ER+, ID+, HER2-, Oncotype DX score: 6) - Signed by Catherine Lugo MD on 12/28/2023 Encounters Date Type Department Care Team Description 06/25/2024 10:45 AM CDT Office Visit [facility] Surgery [address] [facility] [address] [place] [address] Maggi Galeana MD Malignant neoplasm of upper-inner quadrant of left breast in female, estrogen receptor positive (HCC) (Primary Dx) 06/25/2024 10:42 AM CDT - 06/25/2024 11:59 PM CDT Hospital Encounter [facility] - Breast Imaging [address] [facility] [address] [place] [address] Malignant neoplasm of upper-inner quadrant of left breast in female, estrogen receptor positive (HCC) Discharge Disposition: Discharge to home or self care 06/25/2024 Telephone [facility] Medicine Radiation Oncology [address] [place] [address] Advanced Medicine [place] [address] Lizet Joya NP from Last 3 Months Immunizations Immunization Administration Dates Next Due Influenza, Quadrivalent, Spl it, Preservative Free, Intramuscular 01/12/2021,01/10/2020 Influenza, Unspecified 01/16/2024 ZOSTER Recombinant 04/29/2020,01/10/2020 Surgical History Surgery Date Site/Laterality Comments EXCISION BENIGN SKIN LESION SCALP / NECK / HANDS / FEET / GENITALIA N/A 2021 BREAST BIOPSY 10/26/2023 Left Medical History Medical History Date Comments Hypertension Overweight Hypercholesteremia Breast cancer (HCC) Family History Medical History Relation Name Comments No Known Problems Father No Known Problems Mother Breast cancer Paternal Grandmother No Known Problems Sister Relation Name Status Comments Father Alive Maternal Grandmother Mother Alive Paternal Grandmother Sister Alive Social History Tobacco Use Types Packs/Day Years [...] on file Legal Sex Female 9:15 AM OVERHEAD GARAGE DOOR HANGER Gender Identity Not on file Sexual Orientation Not on file Obstetrics History Last Filed Vital Signs Vital Sign Reading Time Taken Comments Blood Pressure 125/74 03/20/2024 9:24 AM OVERHEAD GARAGE DOOR HANGER Pulse 66 03/20/2024 9:24 AM OVERHEAD GARAGE DOOR HANGER Temperature 36.7 C (98.1 F) 03/20/2024 9:24 AM OVERHEAD GARAGE DOOR HANGER Respiratory Rate 16 03/20/2024 9:24 AM OVERHEAD GARAGE DOOR HANGER Oxygen Saturation 100% 03/20/2024 9:24 AM OVERHEAD GARAGE DOOR HANGER Inhaled Oxygen Concentration - - Weight 90 kg (198 lb 6.4 oz) 06/25/2024 10:30 AM CDT Height 165.1 cm (5' 5 ) 12/28/2023 9:07 AM CDT Body Mass Index 33.02 12/28/2023 9:07 AM CDT Plan of Treatment Health Maintenance Due Date Last Done Comments Cervical Cancer Screening 1968 Colon Cancer Screening-Colonoscopy 1968 Depression Screening 1968 Hepatitis C Screening 1968 DTaP/Tdap/Td Vaccine (1 - Tdap) 09/14/1979 Hepatitis B Screening 1986 Regular Well Visit/Exam 18-64 1986 Pneumococcal vaccine <65 (1 of 2 - PCV) 09/14/1987 Covid-19 Vaccine (3 - Modern a risk series) 08/28/2020 07/31/2020, 07/03/2020 Breast Cancer Screening-Mammogram 06/25/2025 025 Zoster Vaccine Completed 04/29/2020, 01/10/2020 Influenza Vaccine Completed 01/16/2024, , 01/10/2020 Medical Devices Implanted Type Area Program Analyst Device Identifier Shelf Expiration Date Model / Serial / Lot Bard Peripheral Vascular Ultraclip Bard 17ga 10cm 2 Trigger Permanent Ultrasound [id number] - [id number] Implanted:Qty: 1 on 10/26/2023 by Teresa Murillo MD at [facility] Left: Breast Bard Peripheral Vascular [id number] / / [employer] Marker Tissue Needle Delivery Spiral Capped Seed Radiopaque Cleaners Stainless Steel Low Nickel Sentimag [id number] - [id number] Implanted:Qty: 1 on 11/20/2023 by Willy Lawrence MD at [facility] [employer] [id number] / / Procedures Procedure Name Priority Date/Time Associated Diagnosis Comments DIAGNOSTIC MAMMOGRAM BILATERAL W THANH Schedule Routine, Read Routine (OP Routine) 06/25/2024 11:46 AM CDT Malignant neoplasm of upper-inner quadrant of left breast in female, estrogen receptor positive (HCC) from Last 3 Months Results * Diagnostic Mammogram Bilateral W Thanh (06/25/2024 11:46 AM CDT) Anatomical Region Laterality [...] nal Result from Last 3 Months Insurance [employer] ANTHEM ACCESS CHOICE Care Teams Pure Culture Operator Relationship Specialty Start Date End Date Jing Nath MD [address] [place] [address] PCP - General Internal Medicine 08/22/23 Leandro Rebolledo MD [address] [place] [address] Referring Physician Obstetrics and Gynecology 08/22/23 Catherine Lugo MD [address] [facility] # [address] [place] [address] Radiation Oncologist Radiation Oncology 12/28/23 Maggi Galeana MD [address] [place] [address] Surgeon Surgical Oncology 12/28/23 Arturo Eller MD [address] [place] [address] Consulting Physician Medical Oncology 12/29/23
--- OUTSIDE RECORDS SUMMARY | 2024-08-23 08:20 | XMS_ITS | Encounter Summary ---
Author Organization [facility] Healthcare Address [address] [place] [address] Care Team Providers Care Pastry Cook Name Role Phone Unavailable Primary Care Provider Unavailabl e Reason for Visit * Diagnostic Imaging (Routine) - Pending Review Specialty Diagnoses / Procedures Referred By Contac t Referred To Contact Procedures Breast Imaging Screening Outside Reference Tammi Roberts NP [address] [facility] [id number] [place] [address] Phone: tel: fax: Referral ID Status Reason Start Date Expiration Date V isits Requested Visits Authorized [id number] Pending Review 09/06/2023 10/05/2024 1 1 Encounter Details Date Type Department Care Team (Late st Contact Info) Description 04/06/2020 Hospital Encounter [facility] [address] [place] [address] Social History Tobacco Use Types Packs/Day Years [...] on file Legal Sex Female 9:15 AM LITERACY CONSULTANT Gender Identity Not on file Sexual Orientation Not on file documented as of this encounter Functional Status * Audit-C Score Answer Date of Assessment Author 3 12/28/2023 9:14 AM GEORGIAT Ben Can RN * Question Answer Date of Assessment Author Q1: How often do you have a drink containing alcohol? 2-3 times a week 12/28/2023 9:14 AM Shania Allen RN Q2: How many drinks containing alcohol do you have on a typical day when you are drinking? 1 or 2 12/28/2023 9:14 AM Shania Allen RN Q3: How often do you have six or more drinks on one occasion? Never 12/28/2023 9:14 AM Shania Allen RN documented as of this encounter Plan of Treatment Not on file documented as of this encounter Procedures Procedure Name Priority Date/Time Associated Diagnosis Comments BREAST IMAGING MG SCREENING OUTSIDE REFERENCE Routine 04/06/2020 12:00 AM LITERACY CONSULTANT documented in this encounter Results * Breast Imaging Screening Outside Reference (04/06/2020 12:00 AM LITERACY CONSULTANT) Impressions [facility]_M[facility]MO[facility] - 09/06/2023 10:25 AM CDT These images are for Reference purposes only and have not been reviewed by [facility] Radiology. There will be no report generated by a [facility] Radiologist. Narrative [facility]_MAMMO[facility] - 09/06/2023 10:25 AM CDT EXAMINATION: Images For Reference Purposes Only us Tammi Roberts NP IMG MAMMO PROCEDURES Final Result [facility] documented in this encounter Visit Diagnoses Not on filedocumented in this encounter
--- OUTSIDE RECORDS SUMMARY | 2024-08-23 08:20 | XMS_ITS | Encounter Summary ---
Author Organization [facility] Healthcare Address [address] [place] [address] Care Team Providers Care Wash Oil Pump Operator Name Role Phone Unavailable Primary Care Provider Unavailabl e Reason for Visit * Diagnostic Imaging (Routine) - Closed Specialty Diagnoses / Procedures Referred By Contpau t Referred To Contact Diagnoses Left breast mass Procedures Breast Imaging Screening Outside Reference Tammi Roberts NP [address] [facility] [phone] [place] [address] Phone: tel: fax: Tammi Roberts NP Phone: tel: fax: Referral ID Status Reason Start Date Expiration Date Visits Re quested Visits Authorized [id number] Closed 09/06/2023 10/05/2024 1 1 Encounter Details Date Type Department Care Team (Late st Contact Info) Description 04/05/2019 Hospital Encounter [facility] [address] [place] [id number] Social History Tobacco Use Types Packs/Day Years [...] on file Legal Sex Female 9:15 AM SPOT WELDER LINE Gender Identity Not on file Sexual Orientation Not on file documented as of this encounter Functional Status * Audit-C Score Answer Date of Assessment Author 3 12/28/2023 9:14 AM Ben Allen RN * Question Answer Date of Assessment [...] BREAST IMAGING MG SCREENING OUTSIDE REFERENCE Routine 04/05/2019 12:00 AM SPOT WELDER LINE documented in this encounter Results * Breast Imaging Screening Outside Reference (04/05/2019 12:00 AM SPOT WELDER LINE) Impressions [facility]MO[facility] - 09/06/2023 10:25 AM CDT These images are for Reference purposes only and have not been reviewed by [facility] Radiology. There will be no report generated by a [facility] Radiologist. Narrative [facility]_M[facility]MO[facility] - 09/06/2023 10:25 AM CDT EXAMINATION: Images For Reference Purposes Only us Tammi Roberts NP IMG MAMMO PROCEDURES Final Result [facility] documented in this encounter Visit Diagnoses Not on filedocumented in this encounter
--- OUTSIDE RECORDS SUMMARY | 2024-08-23 08:20 | XMS_ITS ---
Author Organization [facility] Address [address] [place] [id number] Care Team Providers Care Rubber Thread Spooler Name Role Phone Jing Nath MD Primary Care Provider Leandro Rebolledo MD Unavailable [phone] Catherine Lugo MD Unavailable Maggi Galeana MD Unavailable [phone] Arturo Eller MD Unavailable Active Problems Problem Noted Date Diagnosed Date Malignant neoplasm of upper- inner quadrant of left breast in female, estrogen receptor positive 11/16/2023 Cancer Staging:Pathologic stage from 11/22/2023:Stage IA(pT1b, pN0(sn), cM0, G2, ER+, MT+, HER2-, Oncotype DX score: 6) - Signed by Catherine Lugo MD on 12/28/2023 Current Treatment and Therapy Plans No current plan information found. Past Treatment and Therapy Plans No past plan information found. Radiation Treatments * Course [id number]/11/2024 - 01/17/2024 Treatment Period Energy Fraction Dose Fractions Total Dose Plans Planned LT BRST 01/11/2024 - 01/17/2024 600 5 / 3,000 Reference Points Delivered [id number] 01/11/2024 - 01/17/2024 3,000
[2024-08-23 09:11] LABS: Basophils Absolute Auto 0.03 K/mm3 (0.00-0.10); Basophils Percent Auto 0.7 % (0.0-1.0); Eosinophils Absolute Auto 0.08 K/mm3 (0.02-0.50); Eosinophils Percent Auto 1.8 % (1.0-6.0); Hematocrit 43.3 % (35.0-49.0); Hemoglobin 13.8 g/dL (12.0-15.0); Immature Granulocyte Absolute 0.01 K/mm3 (0.00-0.00); Immature Granulocyte Percent A 0.2 % (0.0-0.0); Lymphocytes Absolute Auto 1.35 K/mm3 (1.10-4.50); Mean Corpuscular HGB Conc 31.9 g/dL (32-36); Mean Corpuscular Hemoglobin 28.7 pg (27.0-31.0); Mean Platelet Volume 10.9 fl (9.2-11.8); Monocytes Absolute Auto 0.46 K/mm3 (0.10-0.90); Monocytes Percent Auto 10.2 % (2.0-11.0); Neutrophils Absolute Auto 2.57 K/mm3 (1.70-7.20); Neutrophils Percent Auto 57.1 % (50.0-70.0); Platelet Count Result 164 K/mm3 (150-420); Red Blood Count 4.81 M/mm3 (4.20-5.40); Red Cell Distribution Width 13.2 % (11.6-14.4); White Blood Count 4.5 K/mm3 (4.8-10.8)
[2024-08-23 09:27] LABS: Hemoglobin A1C 5.7 % (<5.7)
[2024-08-23 10:32] LABS: Alanine Aminotransferase 36 U/L (6-35); Albumin Level 4.4 g/dL (3.5-5.1); Alkaline Phosphatase 93 U/L (38-126); Anion Gap 3 mmol/L (4-12); Aspartate Amino Transferase 37 U/L (14-36); Bilirubin,Total 0.6 mg/dL (0.2-1.3); Blood Urea Nitrogen 14 mg/dL (7-17); Calcium 9.4 mg/dL (8.4-10.2); Carbon Dioxide 31 mmol/L (22-30); Chloride 105 mmol/L (98-107); Cholesterol 191 mg/dL (0-200); Creatine Kinase 158 U/L (30-135); Estimated Glomerular Filt Rate > 60; Glucose 110 mg/dL (65-110); HDL Direct 54 mg/dL; LDL Cholesterol Calculated 109 mg/dL (<130); Osmolality Calculated 289 mOsm/kg (285-295); Potassium 4.2 mmol/L (3.4-5.0); Sodium 139 mmol/L (137-145); Total Protein 7.1 g/dL (6.3-8.2); Triglycerides 140 mg/dL (<150)
[2024-08-24 09:09] LABS: Cortisol Random 9.8 mcg/dL
== END 2024-08-23 08:18 | disposition home or self-care (01) ==
LOC: CHSLAB 08:18
PROVIDERS: PCP Internal Medicine; Visit Provider Internal Medicine
DX: I10 Essential (primary) hypertension (principal); R73.01 Impaired fasting glucose; E78.2 Mixed hyperlipidemia; E66.09 Other obesity due to excess calories
CPT/HCPCS: 36415; 80053; 80061; 82533; 82550; 83036; 85025

== ENCOUNTER 2025-02-25 08:20 | Outpatient (CLI) | payer BC, SELFPAY ==
--- NOTE | ~2025-02-25 | DEXA_ITS ---
Bone Density Report Name: YANELI ESPINO Age: 54 Sex: Female Ethnicity: White Date of : 1970 Indication: postmenopausal; screening for osteoporosis; cancer; Referring Provider: UNKNOWN, UNKNOWN Study: Bone densitometry was performed. Exam Date: February 25, 2025 Accession number: [id number] Bone Density: Region BMD T-score Z-score Classification AP Spine(L1, L2, L3) 1.007 -0.1 1.0 Normal Femoral Neck (Left) 0.747 -0.9 0.2 Normal Total Hip (Left) 0.998 0.5 1.2 Normal Femoral Neck (Right) 0.844 0.0 1.1 Normal Total Hip (Right) 1.045 0.8 1.6 Normal Femoral Neck Mean 0.796 -0.5 0.6 Normal Total Hip Mean 1.022 0.7 1.4 Normal World Health Organization criteria for BMD impression classify patients as: Normal (T-score at or above -1.0), Osteopenia (T-score between -1.0 and -2.5), or Osteoporosis (T-score at or below -2.5). 10-year Fracture Risk: FRAX not reported because: All T-scores for Spine Total, Hip Total, Femoral Neck at or above -1.0 Clinical Information Provided by Patient: Has 3 or more alcoholic drinks per day Has the following medical conditions: Cancer Patient maximum height was 66 Menopause Age: 50 Drinks caffeinated beverages Onset of menses at age 13 Number of children 0 Impression: The patient has normal bone mass. The patient has risk factors, including: excessive alcohol use. Discussion: BONE DENSITY IS ABOVE THE MINIMUM DESIRABLE LEVEL AT ALL SKELETAL SITES TESTED. This patient?s bone mineral density is above the minimum desirable level (T-score -1.0 or better) at all sites measured. The patient should follow a healthful lifestyle (good nutrition with adequate calcium and vitamin D, and appropriate weight-bearing exercise). Follow-Up: Consider repeating this study in 5 years or sooner if there is some new clinical indication. Reported by: CHRIS on 02/25/2025 8:38:00 AM. Reviewed, dictated and finalized at location A.
== END 2025-02-25 08:21 | disposition home or self-care (01) ==
PROVIDERS: PCP Internal Medicine
DX: C50.212 Malignant neoplasm of upper-inner quadrant of left female breast (principal); Z17.0 Estrogen receptor positive status [ER+]; Z79.811 Long term (current) use of aromatase inhibitors
CPT/HCPCS: 77080